=== PATIENT | male | born 1990 | race Caucasian/White ===

== ENCOUNTER 2019-12-17 05:56 | Emergency (ER) | payer BC, SELFPAY ==
[2019-12-17 06:03] VITALS: BP 125/96; PULSE 94; RESP 17; TEMP 36.6; O2SAT 98
--- NOTE | 2019-12-17 06:10 | ED_ITS ---
HPI - Chest Pain General: Chief Complaint: Chest Pain Stated Complaint: cp Time Seen by Provider: 12/17/19 06:10 History of Present Illness: HPI narrative: 29-year-old comes in complaining of chest pain. Patient states that the pain for 1 day it is nonradiating. He is not noticing change in the pain with deep inspiration movement or palpation. It does not radiate anywhere. He denies fever sweats chills cough or productive cough. When the pain is at its worst he will get some shortness of breath and nausea. He is not had any vomiting at all. He reports the pain at its worst at 6 of 10. Associated symptoms: Deny abdominal pain, dyspnea, fever(s), nausea or vomiting Review of Systems Const: Denies: fever(s), chills, body aches, change in appetite, fatigue or malaise ENMT: Denies: throat pain, ear or mastoid pain, nasal discharge or nasal congestion Card: Denies: chest pain, edema, dyspnea on exertion or orthopnea Resp: Denies: dyspnea, productive cough or non-productive cough GI: Denies: abdominal pain, nausea, vomiting, hematemesis, coffee ground emesis, diarrhea, constipation, bloating, hematochezia or melena : Denies: flank pain, dysuria, urinary frequency or urinary urgency Skin/Breast: Denies: rash or pruritus PFSH ED PFSH: Medical History (Updated 12/17/19 @ 08:50 by Luis Warner DO) Anxiety Depression Hyperlipidemia Surgical History (Updated 12/17/19 @ 06:27 by Luis Warner DO) History of inguinal hernia repair Social History (Updated 12/17/19 @ 06:28 by Luis Warner DO) Smoking and tobacco status: never smoked Alcohol intake: never Physical Exam Const: COMMON NORMALS: no acute distress GENERAL APPEARANCE: cooperative and comfortable ORIENTATION/CONSCIOUSNESS: Yes awake, Yes oriented to person, Yes oriented to place and Yes oriented to time HENMT: COMMON NORMALS: normocephalic, atraumatic and hearing grossly normal bilaterally HEAD & SCALP: normocephalic and atraumatic Eye: COMMON NORMALS: Equal, round and reactive pupils present, EOMs intact bilaterally, conjunctivae normal and no scleral icterus CONJUNCTIVA: Yes conjunctivae normal PUPIL: Yes Equal, round and reactive pupils present Neck/C-Spine: COMMON NORMALS: full ROM, no lymphadenopathy, supple and no JVD Lymph: LYMPHATIC: no lymphadenopathy noted and no lymphedema noted Resp: COMMON NORMALS: normal respiratory effort, No retractions, No use of accessory muscles and clear to auscultation bilaterally AUSCULTATION: clear to auscultation bilaterally Cardio: COMMON NORMALS: no JVD, regular rate, regular rhythm and No murmurs present (Cardio) RATE: regular rate RHYTHM: regular rhythm GI: COMMON NORMALS: Soft to palpation and No hepatosplenomegaly present AUSCULTATION: Yes normoactive bowel sounds PALPATION: Yes Soft to palpation, No Tenderness to palpation present (GI), No Guarding due to palpation present (GI) and Yes No hepatosplenomegaly present Extremity: COMMON NORMALS: normal to inspection, capillary refill normal, no clubbing, cyanosis or edema, no calf tenderness and no pedal edema Neuro: SENSORIUM/ORIENTATION: Yes oriented to person, Yes oriented to place and Yes oriented to time Skin: COMMON NORMALS: no rashes or lesions noted GENERAL SKIN EXAM: no rashes or lesions noted Course Vital Signs: Vital signs: Vital Signs Temperature 97.9 F 12/17/19 09:40 Pulse Rate 76 12/17/19 09:40 Respiratory Rate 18 12/17/19 09:40 Blood Pressure 115/91 12/17/19 09:40 Pulse Oximetry 95 12/17/19 09:40 MDM - Chest Pain MDM Narrative: Medical decision making narrative: Bones are negative x2 we will dismiss the patient have him take aspirin daily if he has recurrent chest pain return. We will set up for outpatient graded exercise stress test discussed plan with and patient they are agreeable. He knows to return if he had any further symptoms. Lab Data: Labs: Lab Results 12/17/19 12/17/19 12/17/19 Range/Units 06:06 06:06 06:06 WBC 8.1 (4.0-10.0) 10^3/ uL RBC 5.47 H (4.1-5.3) 10^6/u L Hgb 15.9 (11.7-16.6) g/dL Hct 49.6 (42.0-52.0) % MCV 90.7 (80-94) fL MCH 29.1 (28.0-34.0) pg MCHC 32.1 (30.0-36.0) g/dL RDW 12.8 (12.1-15.1) % Plt Count 308 (130-400) 10^3/c mm MPV 10.6 H (7.4-10.4) fL Neut % (Auto) 49.9 % Lymph % (Auto) 38.3 % [place] % (Auto) 8.1 % Eos % (Auto) 2.6 % Baso % (Auto) 1.0 % Neut # (Auto) 4.03 (1.8-7.7) 10^3/u L Lymph # (Auto) 3.1 (0.8-4.8) 10^3/u L [place] # (Auto) 0.7 (0.2-0.9) 10^3/u L Eos # (Auto) 0.2 (0.0-0.8) 10^3/u L Baso # (Auto) 0.1 (0.0-0.1) 10^3/u L Nucleated RBC % (a uto) 0 % Nucleated RBCs # 0.0 /100WBC Sodium 141 (136-145) mmol/L Potassium 4.0 (3.5-5.1) mmol/L Chloride 103 (98-107) mmol/L Carbon Dioxide 29 (22-29) mmol/L Anion Gap 13.0 (5-19) BUN 16 (6-20) mg/dL Creatinine 1.2 (0.7-1.2) mg/dL GFR Calculation 70.6 L (90-130) mL/min Glucose 99 (65-115) mg/dL Calculated Osmolal ity 288 (285-295) mOsm/k g Calcium 9.9 (8.5-10.5) mg/dL Total Bilirubin 0.4 (0.15-1.2) mg/dL AST 22 (0-40) U/L ALT 30 (0-41) U/L Alkaline Phosphata se 69 (40-130) IU/L Troponin T Baselin e 6 (0-15) ng/L Troponin T 120 Min [place] (0-15) ng/L Delta Troponin T (0-10) ABS# Total Protein 8.0 (6.6-8.7) g/dL Albumin 5.0 (3.5-5.2) g/dL Globulin 3.0 (1.3-4.6) g/dL 12/17/19 Range/Units 08:12 WBC (4.0-10.0) 10^3/ uL RBC (4.1-5.3) 10^6/u L Hgb (11.7-16.6) g/dL Hct (42.0-52.0) % MCV (80-94) fL MCH (28.0-34.0) pg MCHC (30.0-36.0) g/dL RDW (12.1-15.1) % Plt Count (130-400) 10^3/c mm MPV (7.4-10.4) fL Neut % (Auto) % Lymph % (Auto) % [place] % (Auto) % Eos % (Auto) % Baso % (Auto) % Neut # (Auto) (1.8-7.7) 10^3/u L Lymph # (Auto) (0.8-4.8) 10^3/u L [place] # (Auto) (0.2-0.9) 10^3/u L Eos # (Auto) (0.0-0.8) 10^3/u L Baso # (Auto) (0.0-0.1) 10^3/u L Nucleated RBC % (a uto) % Nucleated RBCs # /100WBC Sodium (136-145) mmol/L Potassium (3.5-5.1) mmol/L Chloride (98-107) mmol/L Carbon Dioxide (22-29) mmol/L Anion Gap (5-19) BUN (6-20) mg/dL Creatinine (0.7-1.2) mg/dL GFR Calculation (90-130) mL/min Glucose (65-115) mg/dL Calculated Osmolal ity (285-295) mOsm/k g Calcium (8.5-10.5) mg/dL Total Bilirubin (0.15-1.2) mg/dL AST (0-40) U/L ALT (0-41) U/L Alkaline Phosphata se (40-130) IU/L Troponin T Baselin e (0-15) ng/L Troponin T 120 Min [place] 6.00 (0-15) ng/L Delta Troponin T 0 (0-10) ABS# Total Protein (6.6-8.7) g/dL Albumin (3.5-5.2) g/dL Globulin (1.3-4.6) g/dL Discharge Plan Discharge Patient Disposition: Home Clinical Impression: Atypical chest pain Condition: Stable Prescriptions: New aspirin 81 mg tablet,delayed release (DR/EC) 81 mg PO DAILY Qty: 30 RF: 0 No Action simvastatin 20 mg Tablet 20 mg PO DAILY RF: 0 buspirone 10 mg Tablet 10 mg PO BID RF: 0 Ambien 10 mg Tablet 10 mg PO DAILY RF: 0 albuterol sulfate 90 mcg/actuation Hfa Aerosol Inhaler 2 puff INHALATION Q6H PRN (Reason: Shortness Of Breath) RF: 0 Cymbalta 60 mg Capsule,Delayed Release(Dr/Ec) 60 mg PO DAILY RF: 0 Discharge Orders: Discharge Order (Routine); Ordered 12/17/19 Ordered By: Luis Warner Activity Restrictions/Additional Instructions: Return if you have any further symptoms. Continue take aspirin daily case management will call with appointment for a graded exercise test. Discharge Date/Time: 12/17/19 09:47 Coding Level of Care Code ED Acid Condenser for Danyel Fwd Exam Comprehensive
--- NOTE | 2019-12-17 06:24 | ECG_ITS ---
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 Measurements Intervals [place] Rate: 85 P: 26 AR: 204 QRS: 62 QRSD: 82 T: 61 QT: 364 QTc: 434 Interpretive Statements SINUS RHYTHM NONSPECIFIC T-WAVE ABNORMALITY No previous ECG available for comparison Electronically Signed On 12-17-2019 13:29:23 CDT by Luis Rojas M.D. [email or web address] Corporationoch [email or web address] centerWuiperlouis st[facility].[employer]/store/[id number] f
--- NOTE | 2019-12-17 06:24 | XR_ITS ---
WS: [id number] EXAM: AP CHEST: PORTABLE UPRIGHT DATE OF EXAM: 12/17/2019, 0624 hour COMPARISON: NONE HISTORY: Patient is 29 years old with atraumatic chest pain since last night. Rated 5 out of 10. FINDINGS: The cardiac silhouette is normal in size. The mediastinal contours are normal. The pulmonary vas cularity is normal. Lung volume is mid inspiration. May be some very minimal wispy atelectasis left lung base. Lungs otherwise clear. There is no effusion or pneumothorax. No acute bony abnormality i s seen. XR/XR chest 1V portable [id number] IMPRESSION: Poor inspiratory effort. Maybe some minimal atelectasis left lung base. Lungs o therwise clear. No pulmonary edema.
[2019-12-17] MEDS: nitroglycerin 1 gm/inch oint Pkt 0.5 INCH TOPICAL (06:32)
[2019-12-17] MEDS: aspirin 81 mg Chew Tablet 324 MG PO (06:32)
[2019-12-17 06:35] VITALS: BP 122/94; PULSE 87; RESP 16; O2SAT 96
[2019-12-17 06:36] LABS: Basophils # 0.1 10^3/uL (0.0-0.1); Eosinophils # 0.2 10^3/uL (0.0-0.8); Eosinophils % 2.6 %; Hematocrit 49.6 % (42.0-52.0); Hemoglobin 15.9 g/dL (11.7-16.6); Lymphocytes # 3.1 10^3/uL (0.8-4.8); Lymphocytes % 38.3 %; Mean Corpuscular HGB Conc 32.1 g/dL (30.0-36.0); Mean Corpuscular Hemoglobin 29.1 pg (28.0-34.0); Mean Corpuscular Volume 90.7 fL (80-94); Mean Platelet Volume 10.6 fL (7.4-10.4); Monocytes # 0.7 10^3/uL (0.2-0.9); Monocytes % 8.1 %; Neutrophils # 4.03 10^3/uL (1.8-7.7); Neutrophils % 49.9 %; Nucleated Red Blood Cells % 0 %; Platelet Count 308 10^3/cmm (130-400); Red Blood Count 5.47 10^6/uL (4.1-5.3); Red Cell Distribution Width 12.8 % (12.1-15.1); White Blood Count 8.1 10^3/uL (4.0-10.0)
[2019-12-17 06:51] LABS: Alanine Aminotransferase 30 U/L (0-41); Alkaline Phosphatase 69 IU/L (40-130); Aspartate Amino Transferase 22 U/L (0-40); Blood Urea Nitrogen 16 mg/dL (6-20); Calcium 9.9 mg/dL (8.5-10.5); Carbon Dioxide 29 mmol/L (22-29); Chloride 103 mmol/L (98-107); Glomerular Filtration Rate 70.6 mL/min (90-130); Glucose 99 mg/dL (65-115); Osmolality Calculated 288 mOsm/kg (285-295); Sodium 141 mmol/L (136-145); Total Bilirubin 0.4 mg/dL (0.15-1.2)
[2019-12-17 06:54] LABS: Troponin(5th) Baseline 6 ng/L (0-15)
[2019-12-17 07:08] VITALS: BP 121/82; PULSE 83; RESP 16; O2SAT 96
--- NOTE | 2019-12-17 07:12 | PC.NURSE ---
Received report assumed care. No changes noted from report, rates pain a 3/10. Continue to monitor.
--- NOTE | 2019-12-17 08:24 | ECG_ITS ---
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 Measurements Intervals [place] Rate: 72 P: 26 OR: 199 QRS: 59 QRSD: 80 T: 75 QT: 336 QTc: 370 Interpretive Statements SINUS RHYTHM NONSPECIFIC T-WAVE ABNORMALITY Compared to ECG 12/17/2019 06:10:17 No significant changes Electronically Signed On 12-17-2019 18:06:50 CDT by Luis Rojas M.D. [email or web address].Z[employer] StudiosUroSenspremier health [facility].[employer]/store/[id number] f
[2019-12-17 08:44] LABS: Troponin 5 2HR Delta 0 ABS# (0-10)
[2019-12-17 08:45] VITALS: BP 127/80; PULSE 76; RESP 18; O2SAT 97
--- NOTE | 2019-12-17 08:46 | PC.NURSE ---
No Acute changes noted. at bedside. Continue to monitor
[2019-12-17 09:19] VITALS: BP 130/87; PULSE 76; RESP 18; O2SAT 95
[2019-12-17 09:40] VITALS: BP 115/91; PULSE 76; RESP 18; TEMP 36.6; O2SAT 95
--- NOTE | 2019-12-17 14:01 | DCPLANNER ---
restaurant front manager had message to schedule an outpatient stress test for patient. restaurant front manager called patient to confirm that patient still wanted to have stress test and to confirm who patient sees for primary care. restaurant front manager called [phone], unable to speak with patient at this time a voicemail was left for patient to return senior case manager phone call.
--- NOTE | 2019-12-18 13:07 | DCPLANNER ---
Patients spoke with rn case manager hospice, stated that patient does have a primary care, he sees Carol Garner. parts sales manager faxed stress test order to centralized scheduling. Centralized scheduling will call patient with appointment information.
--- NOTE | 2019-12-20 13:35 | DCPLANNER ---
Patient has a follow up appointment scheduled for Tuesday, December 31, 2019 at 12:15. Centralized scheduling will call patient with appointment information.
--- NOTE | 2020-01-17 15:13 | DCPLANNER ---
Patient had an appointment scheduled for 12.31.19 - patient did not attend appointment.
== END 2019-12-17 09:47 | disposition home or self-care (01) ==
PROVIDERS: Emergency Provider Family Medicine
DX: R07.89 Other chest pain (principal); E78.5 Hyperlipidemia, unspecified
CPT/HCPCS: 12345; 71045; 80053; 84484; 85025; 93005; 99283; 99284

== ENCOUNTER → 2020-01-02 11:12 | Outpatient (BNVA) | payer BC, SELFPAY | PROVIDERS: Visit Provider Nurse Practitioner Family | DX: Z20.828 Contact with and (suspected) exposure to other viral communicable diseases (principal); J06.9 Acute upper respiratory infection, unspecified | CPT/HCPCS: 87635 ==